=== PATIENT | male | born 1975 | race Caucasian/White ===

== ENCOUNTER → 2017-01-07 | Outpatient (CLI) | payer OTHER ==
--- NOTE | 2017-01-07 16:47 | REP ---
Right foot: Four views: History: Contusion. Findings: Four views of the right foot show overall normal mineralization. There is mild Achilles calcaneal spurring. No fracture or subluxation is seen. Impression: No fracture noted. Signed by Kaleb Saavedra MD 01/07/2017 05:08 P
== END ==
LOC: M WUC 14:36
PROVIDERS: ATTEND Physician Assistant
DX: S90.31XA Contusion of right foot, initial encounter (principal); W18.30XA Fall on same level, unspecified, initial encounter; Y92.009 Unspecified place in unspecified non-institutional (private) residence as the place of occurrence of the external cause

== ENCOUNTER 2017-04-11 19:16 | Emergency (ER) | payer MEDICAID, OTHER, SELFPAY ==
[~2017-04-11] VITALS: Ht 182.9 cm; Wt 93.0 kg
[2017-04-11 19:18] VITALS: BP 133/83
[2017-04-11] MEDS ORDERED: AMOX500T PO (19:25)
[2017-04-11] MEDS ORDERED: MAGIC MOUTHWASH SUSPENSION BTL SSP ONE (19:45)
[2017-04-11] MEDS ORDERED: PENI250T57 PO (19:54)
[2017-04-11] MEDS ORDERED: PENICILLIN V POTASSIUM 500 MG TAB PO ONE (20:00)
== END 2017-04-11 20:19 | disposition home or self-care (01) ==
LOC: M ED 19:56
DX: J02.0 Streptococcal pharyngitis (principal)

== ENCOUNTER 2017-05-18 17:15 | Emergency (ER) | payer MEDICAID, OTHER ==
[~2017-05-18] VITALS: Ht 185.4 cm; Wt 100.0 kg
[~2017-05-18 17:15] MED LIST: AMOX500T PO; PENI250T57 PO
[2017-05-18] MEDS ORDERED: ASPIRIN 81 MG CHEW TABLET PO ONE (18:00)
[2017-05-18] MEDS ORDERED: NS 1,000 ML IV ONE (18:00)
[2017-05-18 18:35] LABS: BASO # 0.1 K/mm3 (0.0-0.2); EOS # 0.2 K/mm3 (0.0-0.50); EOS % 2.8 % (0.0-3.0); LARGE UNSTAINED CELL # 0.1 K/mm3 (0.0-0.4); LARGE UNSTAINED CELL % 1.8 % (0.0-4.0); LYMPH % 33.2 % (24.0-44.0); MEAN CORPUSCULAR HEMOGLOBIN 28.2 pg (27.0-33.0); MEAN CORPUSCULAR HGB CONC 33.6 g/dl (32.0-36.5); MEAN CORPUSCULAR VOLUME 84.1 fl (80.0-96.0); MONO # 0.3 K/mm3 (0.0-0.8); MONO % 5.2 % (0.0-5.0); NEUTROPHILS # 3.3 K/mm3 (1.8-7.7); NEUTROPHILS % 56.1 % (36.0-66.0); PLATELET COUNT, AUTOMATED 304 k/mm3 (150-450); RED CELL DISTRIBUTION WIDTH 13.3 % (11.5-14.5); WHITE BLOOD COUNT 5.8 K/mm3 (4.0-10.0)
[2017-05-18 18:50] LABS: ALBUMIN 3.9 GM/DL (3.2-5.2); ALBUMIN/GLOBULIN RATIO 0.98 (1.00-1.93); ALKALINE PHOSPHATASE 88 U/L (45-117); ALT/SGPT 37 U/L (12-78); ANION GAP 8 MEQ/L (8-16); AST/SGOT 31 U/L (15-37); BILIRUBIN,DIRECT < 0.1 MG/DL (0.0-0.2); BILIRUBIN,TOTAL 0.4 MG/DL (0.2-1.0); BLOOD UREA NITROGEN 15 MG/DL (7-18); CALCIUM LEVEL 8.9 MG/DL (8.5-10.1); CARBON DIOXIDE LEVEL 24 MEQ/L (21-32); CHLORIDE LEVEL 108 MEQ/L (98-107); CREATININE FOR GFR 1.22 MG/DL (0.70-1.30); GLOMERULAR FILTRATION RATE > 60.0 (>60); GLUCOSE, FASTING 112 MG/DL (70-105); POTASSIUM SERUM 3.5 MEQ/L (3.5-5.1); SODIUM LEVEL 140 MEQ/L (136-145); TOTAL PROTEIN 7.9 GM/DL (6.4-8.2)
--- NOTE | 2017-05-18 19:00 | REPUSA ---
CT of the head Clinical history: numbness. Comparison: 11/26/2011. Technique: Multiple axial CT images were obtained through the head without administration of contrast . Findings: The ventricles and sulci are symmetric bilaterally. There is no evidence of acute hemorrhag e or infarct. There is no midline shift, mass effect, or extra-axial fluid collection. The osseous st ructures are unremarkable. The visualized paranasal sinuses and mastoid air cells are clear. Impression: Negative study.
[2017-05-18] MEDS ORDERED: ISOVUE-370 76% 100ML VIAL (Q9967) As Ordered ONE (19:33)
--- NOTE | 2017-05-18 19:37 | ECGEPIP ---
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
[2017-05-18 21:45] VITALS: BP 119/83
--- NOTE | 2017-05-19 06:52 | REP ---
PORTABLE CHEST, ONE VIEW: HISTORY: Chest pain. COMPARISON: 04/29/2013. The lungs are clear. The heart is normal in size. The pulmonary vasculature is normal in appearance. ___. IMPRESSION: No acute disease. Signed by Spike Rosas MD 05/19/2017 08:13 A
--- NOTE | 2017-05-19 07:28 | ECGEPIP ---
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
== END 2017-05-19 00:36 | disposition left against medical advice (07) ==
LOC: M ED 17:15
DX: R07.89 Other chest pain (principal)

== ENCOUNTER 2017-12-11 16:17 | Inpatient (IN) | payer OTHER ==
[2017-12-11 17:59] LABS: BASO % 0.4 % (0.0-1.0); EOS % 0.2 % (0.0-3.0); HEMATOCRIT 39.6 % (42.0-52.0); HEMOGLOBIN 13.5 g/dl (14.0-18.0); IMMATURE GRANULOCYTE % 0.3 % (0-3.0); LYMPH # 1.2 10^3/uL (1.5-4.5); LYMPH % 13.2 % (24.0-44.0); MEAN CORPUSCULAR HEMOGLOBIN 28.2 pg (27.0-33.0); MEAN CORPUSCULAR HGB CONC 34.1 g/dl (32.0-36.5); MEAN CORPUSCULAR VOLUME 82.7 fl (80.0-96.0); MONO # 0.6 10^3/uL (0.0-0.8); MONO % 6.3 % (0.0-5.0); NEUTROPHILS # 7.4 10^3/uL (1.8-7.7); NEUTROPHILS % 79.6 % (36.0-66.0); PLATELET COUNT, AUTOMATED 291 10^3/uL (150-450); RED BLOOD COUNT 4.79 10^6/uL (4.30-6.10); RED CELL DISTRIBUTION WIDTH 13.1 % (11.5-14.5); WHITE BLOOD COUNT 9.3 10^3/uL (4.0-10.0)
[2017-12-11] MEDS: GASTROGRAFIN SOLUTION 30ML PO ×4 (18:00→19:06)
[2017-12-11] MEDS: NS 1,000 ML IV (18:00)
[2017-12-11 18:01] LABS: APPEARANCE, URINE CLEAR (CLEAR); BACTERIA, URINE AUTO NEGATIVE (NEGATIVE); BILIRUBIN, URINE AUTO NEGATIVE (NEGATIVE); BLOOD, URINE BLOOD NEGATIVE (NEGATIVE); COLOR, URINE STRAW (YELLOW); GLUCOSE, URINE (UA) AUTO NEGATIVE (NEGATIVE); KETONE, URINE AUTO NEGATIVE (NEGATIVE); LEUKOCYTE ESTERASE, URINE AUTO NEGATIVE (NEGATIVE); NITRITE, URINE AUTO NEGATIVE (NEGATIVE); PROTEIN, URINE AUTO NEGATIVE (NEGATIVE); RBC, URINE AUTO 1 /HPF (0-3); SPECIFIC GRAVITY URINE AUTO 1.008 (1.002-1.035); SQUAMOUS EPITHELIAL CELL UR AU 0 /HPF (0-6); UROBILINOGEN, URINE AUTO 0.2 mg/dL (0.0-2.0); WBC, URINE AUTO 0 /HPF (0-3)
[2017-12-11 18:09] LABS: INR 0.88; PARTIAL THROMBOPLASTIN TIME 25.6 SECONDS (26.8-37.9)
[2017-12-11 18:36] LABS: ALBUMIN 3.9 GM/DL (3.2-5.2); ALBUMIN/GLOBULIN RATIO 1.18 (1.00-1.93); ALKALINE PHOSPHATASE 82 U/L (45-117); ALT/SGPT 28 U/L (12-78); AMYLASE 78 U/L (25-115); ANION GAP 8 MEQ/L (8-16); AST/SGOT 25 U/L (7-37); BILIRUBIN,DIRECT < 0.1 MG/DL (0.0-0.2); BILIRUBIN,TOTAL 0.3 MG/DL (0.2-1.0); BLOOD UREA NITROGEN 21 MG/DL (7-18); C REACTIVE PROTEIN QUANTITATIV < 0.30 MG/DL (0.00-0.30); CALCIUM LEVEL 8.9 MG/DL (8.5-10.1); CARBON DIOXIDE LEVEL 27 MEQ/L (21-32); CHLORIDE LEVEL 109 MEQ/L (98-107); CREATININE FOR GFR 1.21 MG/DL (0.70-1.30); GLOMERULAR FILTRATION RATE > 60.0 (>60); GLUCOSE, FASTING 79 MG/DL (70-100); LIPASE 124 U/L (73-393); POTASSIUM SERUM 4.1 MEQ/L (3.5-5.1); SODIUM LEVEL 144 MEQ/L (136-145); TOTAL PROTEIN 7.2 GM/DL (6.4-8.2)
[2017-12-12] MEDS: D5W/0.9% SODIUM CHLORIDE 1,000 ML IV ×2 (00:34→07:58)
[2017-12-12 01:11] LABS: HEMATOCRIT 36.8 % (42.0-52.0); HEMOGLOBIN 12.4 g/dl (14.0-18.0)
[2017-12-12 05:29] LABS: HEMATOCRIT 37.7 % (42.0-52.0); HEMOGLOBIN 12.6 g/dl (14.0-18.0); MEAN CORPUSCULAR HEMOGLOBIN 27.9 pg (27.0-33.0); MEAN CORPUSCULAR HGB CONC 33.4 g/dl (32.0-36.5); MEAN CORPUSCULAR VOLUME 83.4 fl (80.0-96.0); PLATELET COUNT, AUTOMATED 251 10^3/uL (150-450); RED BLOOD COUNT 4.52 10^6/uL (4.30-6.10); RED CELL DISTRIBUTION WIDTH 13.2 % (11.5-14.5); WHITE BLOOD COUNT 6.2 10^3/uL (4.0-10.0)
[2017-12-12 05:49] LABS: ANION GAP 5 MEQ/L (8-16); BLOOD UREA NITROGEN 15 MG/DL (7-18); CALCIUM LEVEL 8.4 MG/DL (8.5-10.1); CARBON DIOXIDE LEVEL 29 MEQ/L (21-32); CHLORIDE LEVEL 110 MEQ/L (98-107); CREATININE FOR GFR 1.08 MG/DL (0.70-1.30); GLOMERULAR FILTRATION RATE > 60.0 (>60); GLUCOSE, FASTING 98 MG/DL (70-100); POTASSIUM SERUM 3.8 MEQ/L (3.5-5.1); SODIUM LEVEL 144 MEQ/L (136-145)
[2017-12-12] MEDS: FAMOTIDINE 20 MG TAB PO (07:57)
[2017-12-12] MEDS: PANTOPRAZOLE 40MG INJ (PROTONIX) (C9113) IV (07:58)
== END 2017-12-12 11:00 | disposition home or self-care (01) | DRG 253 ==
LOC: M PCU 12-12 00:22 → M ED 16:17 → M ED INP 23:18
DX: K62.5 Hemorrhage of anus and rectum (principal); K40.90 Unilateral inguinal hernia, without obstruction or gangrene, not specified as recurrent; K57.30 Diverticulosis of large intestine without perforation or abscess without bleeding; K42.9 Umbilical hernia without obstruction or gangrene; Z87.891 Personal history of nicotine dependence; Z79.899 Other long term (current) drug therapy; D62 Acute posthemorrhagic anemia

== ENCOUNTER 2018-06-04 12:26 | Emergency (ER) | payer OTHER | END 2018-06-04 13:58 | disposition home or self-care (01) | LOC: M ED 12:26 | DX: T63.441A Toxic effect of venom of bees, accidental (unintentional), initial encounter (principal); Y92.9 Unspecified place or not applicable; Y93.9 Activity, unspecified; Z72.0 Tobacco use | CPT/HCPCS: 99284 ==

== ENCOUNTER 2018-12-20 11:17 | Emergency (ER) | payer OTHER ==
[~2018-12-20] VITALS: Ht 182.9 cm; Wt 100.0 kg
[~2018-12-20 11:17] MED LIST changes: +ANUS25SU PR; +COLA100C5 PO; +EPIP0.3I2 IM; +IBUP1TAB7 PO; +MIRA3350 PO; +PRIL20TA2 PO; +RANI150T PO; +RANI15TA PO; +SUCR1TA PO
[2018-12-20] MEDS ORDERED: RANI-280 (11:27)
[2018-12-20] MEDS ORDERED: LIDOCAINE 1% MDV 20ML VIAL IM ONE (12:30)
[2018-12-20] MEDS ORDERED: KEFL500C17 PO (12:52)
[2018-12-20 13:00] VITALS: BP 126/87
== END 2018-12-20 13:07 | disposition home or self-care (01) ==
LOC: M ED 11:17
DX: L72.3 Sebaceous cyst (principal); G43.909 Migraine, unspecified, not intractable, without status migrainosus; K57.32 Diverticulitis of large intestine without perforation or abscess without bleeding; Z87.891 Personal history of nicotine dependence; Z79.899 Other long term (current) drug therapy

== ENCOUNTER → 2020-02-11 | Outpatient (CLI) | payer OTHER ==
[~2020-02-11] MED LIST changes: +KEFL500C17 PO; +RANI-280
--- NOTE | 2020-02-11 09:28 | REP ---
REASON: Cough. FINDINGS: The superior mediastinal structures are midline. The cardiac silhouette is unremarkable in size, shape, and position. The diaphragmatic surfaces of the lungs are regular, and the costophrenic angles are clear. The pulmonary fierro are clear. The imaged osseous structures are intact. IMPRESSION: There is no acute cardiopulmonary disease. Electronically Signed by Donavan Diallo DO 02/11/2020 09:29 A
[2020-02-11 10:07] LABS: BASO % 0.3 % (0.0-1.0); HEMATOCRIT 45.9 % (42.0-52.0); HEMOGLOBIN 15.1 g/dl (13.5-17.5); LYMPH # 2.6 10^3/uL (1.5-5.0); LYMPH % 27.3 % (24.0-44.0); MEAN CORPUSCULAR HEMOGLOBIN 27.8 pg (27.0-33.0); MEAN CORPUSCULAR HGB CONC 32.9 g/dl (32.0-36.5); MEAN CORPUSCULAR VOLUME 84.5 fl (80.0-96.0); MONO # 0.6 10^3/uL (0.0-0.8); MONO % 6.2 % (0.0-5.0); NEUTROPHILS # 6.2 10^3/uL (1.5-8.5); NEUTROPHILS % 65.8 % (36.0-66.0); PLATELET COUNT, AUTOMATED 359 10^3/uL (150-450); RED BLOOD COUNT 5.43 10^6/uL (4.30-6.10); WHITE BLOOD COUNT 9.4 10^3/uL (4.0-10.0)
[2020-02-11 10:33] LABS: ALBUMIN 3.7 GM/DL (3.2-5.2); ALT/SGPT 48 U/L (12-78); BILIRUBIN,TOTAL 0.5 MG/DL (0.2-1.0); BLOOD UREA NITROGEN 18 MG/DL (7-18); CALCIUM LEVEL 9.6 MG/DL (8.5-10.1); CARBON DIOXIDE LEVEL 29 MEQ/L (21-32); CHLORIDE LEVEL 103 MEQ/L (98-107); CREATININE FOR GFR 1.31 MG/DL (0.70-1.30); FREE T4 1.11 NG/DL (0.76-1.46); GLOMERULAR FILTRATION RATE > 60.0 (>60); GLUCOSE, FASTING 148 MG/DL (70-100); POTASSIUM SERUM 4.2 MEQ/L (3.5-5.1); SODIUM LEVEL 139 MEQ/L (136-145); THYROID STIMULATING HORMONE 0.483 uIU/ML (0.358-3.740); TOTAL PROTEIN 7.6 GM/DL (6.4-8.2)
== END ==
LOC: M WUC 08:51
PROVIDERS: ATTEND Physician Assistant
DX: R06.02 Shortness of breath (principal); R05 Cough; Z11.59 Encounter for screening for other viral diseases; Z20.828 Contact with and (suspected) exposure to other viral communicable diseases
CPT/HCPCS: 71046; 80053; 84439; 84443; 85025; 85379; 87502; U0002

== ENCOUNTER → 2021-04-13 | Outpatient (CLI) | payer OTHER ==
--- NOTE | 2021-04-13 12:09 | REP ---
INDICATION: CONTUSION COMPARISON: None. TECHNIQUE: Four views left elbow. FINDINGS: There is no evidence of acute fracture, dislocation, or intrinsic bone disease.There is a benign bone island in the proximal radius. There is no radiographic evidence of a joint effusion. IMPRESSION: No fracture or dislocation. <Electronically signed by Pramod Alexander > 04/13/21 [id number]
== END ==
LOC: M WUC 11:52
PROVIDERS: ATTEND Physician Assistant
DX: S50.02XA Contusion of left elbow, initial encounter (principal); X58.XXXA Exposure to other specified factors, initial encounter; Y92.89 Other specified places as the place of occurrence of the external cause; Y93.9 Activity, unspecified; Y99.9 Unspecified external cause status

== ENCOUNTER 2024-04-08 22:44 | Emergency (ER) | payer OTHER ==
[~2024-04-08] VITALS: Ht 182.9 cm; Wt 109.3 kg
[2024-04-08 22:45] VITALS: BP 157/100; TEMP 97.1; O2SAT 99
== END 2024-04-09 03:49 | disposition left against medical advice (07) ==
LOC: M ED 22:44
DX: Z53.21 Procedure and treatment not carried out due to patient leaving prior to being seen by health care provider (principal)

== ENCOUNTER 2025-05-22 03:47 | Emergency (ER) | payer OTHER, SELFPAY ==
[~2025-05-22] VITALS: Ht 182.9 cm; Wt 85.0 kg
[2025-05-22 03:58] VITALS: TEMP 97
[2025-05-22 04:50] LABS: BASO # 0.1 10^3/uL (0.0-0.2); BASO % 0.8 % (0.0-1.0); EOS # 0.2 10^3/uL (0.0-0.5); EOS % 2.3 % (0.0-3.0); LYMPH # 1.5 10^3/uL (1.5-5.0); LYMPH % 15.0 % (24.0-44.0); MONO # 0.5 10^3/uL (0.0-0.8); MONO % 5.2 % (2.0-8.0); NEUTROPHILS # 7.8 10^3/uL (1.5-8.5); NEUTROPHILS % 76.3 % (36.0-66.0); PLATELET COUNT, AUTOMATED 327 10^3/uL (150-450)
[2025-05-22 05:16] LABS: ALT/SGPT 24.0 U/L (7.0-40); AST/SGOT 29.0 U/L (<34); CALCIUM LEVEL 10.2 MG/DL (8.5-10.1); CARBON DIOXIDE LEVEL 24.0 MMOL/L (20-31); CHLORIDE LEVEL 106.0 MMOL/L (98-107); CREATININE FOR GFR 1.42 MG/DL (0.70-1.30); GLOMERULAR FILTRATION RATE 61.3 (>60); POTASSIUM SERUM 4.1 MMOL/L (3.5-5.1); SODIUM LEVEL 145.0 MMOL/L (136-145)
[2025-05-22] MEDS: NS (Normal Saline) 0.9% 1,000 ML IV ONE ×2 (05:29→08:06)
[2025-05-22] MEDS: AZITHROMYCIN 250 MG TABLET PO ONE (11:15)
[2025-05-22 12:00] VITALS: BP 128/83; O2SAT 99
== END 2025-05-22 12:08 | disposition home or self-care (01) ==
LOC: M ED 03:47 → EDBD 03:47 → M ED 12:08
DX: A04.0 Enteropathogenic Escherichia coli infection (principal); Z87.19 Personal history of other diseases of the digestive system; K21.9 Gastro-esophageal reflux disease without esophagitis